=== PATIENT | male | born 1990 | race Hispanic/Latino ===

== ENCOUNTER → 2020-11-26 | Outpatient (CLI) | payer BC | LOC: MRI 10:03 | PROVIDERS: ATTEND Specialist | DX: M54.42 Lumbago with sciatica, left side (principal); M54.41 Lumbago with sciatica, right side; G89.29 Other chronic pain ==

== ENCOUNTER 2021-03-13 10:57 | Outpatient (RCR) | payer BC | END 2021-03-16 | LOC: PT 10:57 | PROVIDERS: ATTEND Physician Assistant | DX: M54.42 Lumbago with sciatica, left side (principal); M54.41 Lumbago with sciatica, right side; G89.29 Other chronic pain ==

== ENCOUNTER 2021-03-23 08:00 | Outpatient (RCR) | payer BC | END 2021-04-15 | LOC: PT 08:00 | PROVIDERS: ATTEND Physician Assistant | DX: M54.42 Lumbago with sciatica, left side (principal); M54.41 Lumbago with sciatica, right side; G89.29 Other chronic pain ==